=== PATIENT | female | born 1990 | race Caucasian/White ===

== ENCOUNTER 2019-11-30 17:44 | Inpatient (IN) ==
[2019-11-30 18:14] LABS: URINE SOURCE CLEAN CATCH
[2019-11-30 18:25] LABS: BILIRUBIN URINE NEGATIVE (NEGATIVE); BLOOD URINE SMALL (NEGATIVE); COLOR YELLOW; GLUCOSE URINE NEGATIVE (NEGATIVE); KETONE URINE NEGATIVE (NEGATIVE); LEUKOCYTES URINE LARGE (NEGATIVE); NITRITE URINE NEGATIVE (NEGATIVE); PH URINE 6.5; PROTEIN URINE 50 mg/dL (NEGATIVE); TURBIDITY URINE HAZY (CLEAR); UROBILINOGEN URINE NORMAL (NORMAL)
[2019-11-30 18:33] LABS: UR EPITHELIAL CELLS <10 /HPF (<10); URINE BACTERIA 2+ /HPF; URINE RBC <10 /HPF (<10); URINE WBC TNTC /HPF (<10)
[2019-11-30 18:46] LABS: URINE YEAST NONE SEEN
[2019-11-30] MEDS ORDERED: TYLENOL PO PRN (18:58)
[2019-11-30] MEDS ORDERED: MORPHINE IV ONE (18:59)
[2019-11-30] MEDS ORDERED: ZOFRAN IV ONE (18:59)
[2019-11-30] MEDS ORDERED: ROCEPHIN 1 GM in NS 50 ML IV SCH (19:00)
[2019-11-30] MEDS ORDERED: TORADOL IV ONE (19:01)
--- NOTE | 2019-11-30 19:13 | PROVIDER DOCUMENTATION ---
HPI-General Adult - General Chief Complaint: Abdominal Pain Stated Complaint: HURTING ON BOTH SIDE,FEVER Time Seen by Provider: 11/30/19 18:52 Source: patient Allergies/Adverse Reactions: Patient Allergies Allergy/AdvReac Type Severity Reaction Status Date / Time No Known Allergies Allergy Verified 07/09/19 07:56 - History of Present Illness -Gen Adult Nature of Presenting Problems: Patient comes in after having 2-3 days of lower abd and back pain with dysuria. She is tearful on exam. she also complains of fever and chills. Review of Systems - Adult - REVIEW OF SYSTEMS - ADULT Constitutional: reports: see HPI, chills, fever. denies: fatique, night sweats, weight gain, weight loss Eyes: reports: no symptoms reported. denies: discharge, dry eyes, decreased vision, blurred vision, eye pain, redness Ears, Nose, Mouth & Throat: reports: no symptoms reported. denies: ear discha rge, ear pain, tinnitus, epistaxis, nose pain, mouth/dental pain, hoarseness, throat pain Cardiovascular: reports: no symptoms reported. denies: chest pain, edema, heart murmur, irregular heart rate, palpitations, poor circulation, PND, syncope Respiratory: reports: no symptoms reported. denies: chronic cough, cough, dyspnea on exertion, excessive sputum production, hemoptysis, shortness of breath, wheezing Gastrointestinal: reports: see HPI, abdominal pain, nausea. denies: hematemesis, constipation, diarrhea, frequent heartburn, poor appetite, rectal bleeding, vomiting Genitourinary: reports: see HPI, dysuria, frequent UTI's. denies: discharge, frequency, flank pain, hematuria, hesitency, incontinence, urinary retention, urgency Musculoskeletal: reports: no symptoms reported, back pain. denies: bone pain, frequent leg cramps, joint pain, joint swelling, muscle aches, muscle weakness, neck pain Integumentary: reports: no symptoms reported. denies: hives, hair loss, itching, mole changes, rash, skin sores/ulcer, skin thickening Neurological: reports: no symptoms reported. denies: ataxia, headache/migraines, loss of balance, paresthesia, seizure, slurred speech, syncope, tremors Psychiatric: reports: no symptoms reported. denies: anxiety, anti-depressant use, alcohol/drug dependence, depression, emotional problems, insomnia, panic attacks, suicidal thoughts Endocrine: reports: no symptoms reported. denies: change in skin pigment, excessive sweating, goiter, cold intolerance, increased hunger, increased thirst, polyuria Hematologic/Lymphatic: reports: no symptoms reported. denies: blood clots, easy bruising, low blood count, lymphedema, swollen lymph nodes, transfusions Allergic/Immunologic: reports: no symptoms reported. denies: allergic reactions, allergic rhinitis, asthma, eczema, frequent infections, hives, positive PPD, urticaria All Other Systems: Reviewed and Negative Past History - Adult - PAST MEDICAL HISTORY-ADULT Review of Records: reports: Old Records Reviewed, Nursing Assessment Review, Medications Reviewed, Social history reviewed & non-contributory. Major Childhood Illnesses: reports: denies history Cardiovascular: reports: denies history Respiratory: reports: asthma Gastrointestinal: reports: denies history Obstetrical/Gynecological: reports: denies history Genitourinary: reports: other (frequent UTIs and pyelonephritis. ) Musculoskeletal: reports: denies history Neurological: reports: denies history Endocrine/Immune: reports: denies history Other Conditions: reports: denies history - PRIOR SURGERIES/PROCEDURES Surgical/Procedure History: reports: BTL, , tonsillectomy - PRIOR HOSPITALIZATIONS Prior Hospitalizations: reports: for similar symptoms - IMMUNIZATION STATUS Childhood Immunizations: See Nurse Assessment Flu Vaccine: See Nurse Assessment - FAMILY HISTORY Family History: reviewed, not pertinent - SOCIAL HISTORY Smoking: denies Substance Use: none/never Living Situation: family Physical Exam-General - PHYSICAL EXAM-ADULT Initial Vital Signs Reviewed: Yes - CONSTITUTIONAL General Appearance: alert, moderate distress - EYES Eyes: PERRL/EOMI, pink conjunctivae - HEAD, EARS, NOSE, MOUTH & THROAT HENMT: normocephalic/atraumatic, moist mucous membranes, normal ENT inspection - NECK Neck: non-tender, full range of motion, supple - RESPIRATORY Respiratory: chest non-tender, lungs clear, normal breath sounds, no pleuratic chest pain - CARDIOVASCULAR Cardiovascular: normal peripheral pulses, regular rate, rhythm, no edema - GASTROINTESTINAL (ABDOMEN) Abdominal Exam: normal bowel sounds, soft, tenderness - LYMPHATIC Lymphatic: no adenopathy - MUSCULOSKELETAL Back Exam: CVA tenderness Extremity: normal range of motion, non-tender, normal gait - SKIN Integumentary: normal color, normal turgor, warm/dry - NEUROLOGIC 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-XII nml as tested, grossly normal - PSYCHIATRIC Psych/Mental Status: normal mood/affect, normal thought content, normal thought process, oriented x 3 Progress - PLAN OF CARE/RESULTS Progress/Plan/Lab Results: Vital Signs - 8 hr 11/30/19 18:00 Temperature 99.2 F Pulse Rate 99 H Respiratory Rate 20 Blood Pressure 120/77 O2 Sat by Pulse Oximetry 99 Bedside Urine ED: Urine Bedside Start: 11/30/19 18:06 Freq: ORDERED Status: Active Protocol: Activity Type Activity Date Activity User E-Sign Co-Sign Detail Recorded Client Recorded Date Recorded By Document 11/30/19 18:08 [id number] 11/30/19 18:08 [id number] 11/30/19 18:08 Point of Care [Bedside Point of Care] -Lot # [id number] - Results Negative -Control Line Visible? Yes Laboratory Results - last 24 hr 11/30/19 18:05 Urine Source CLEAN CATCH Urine Color YELLOW Urine Turbidity HAZY Urine pH 6.5 Ur Specific [place] 1.010 Urine Protein 50 A Ur Glucose (Stick) NEGATIVE Ur Ketones (Stick) NEGATIVE Urine Blood SMALL A Urine Nitrite NEGATIVE Urine Bilirubin NEGATIVE Urobilinogen Dipstick NORMAL Urine Leukocytes LARGE A Urine WBC (Auto) TNTC A Urine RBC (Auto) <10 U Epithel Cells (Auto) <10 Urine Bacteria (Auto) 2+ Urine Crystals Not Reportable Small Round Cells Not Reportable Urine Casts Not Reportable Urine Yeast-like Cells NONE SEEN Orders Category Date Time Status Urine Preg [ED: Urine Bedside] ORDERED Care 11/30/19 18:06 Active CBC WITH DIFF [HEME] Stat Lab 11/30/19 18:57 Uncollected CMP [COMPREHENSIVE METABOLIC PANEL] [CHEM] Stat Lab 11/30/19 18:58 Uncollected UA NIMS W/REFLEX CULT [URINALYSIS] Stat Lab 11/30/19 18:05 Completed URINE CULTURE [RM] Routine Lab 11/30/19 18:05 Received URINE MANUAL MICROSCOPIC [URINALYSIS] Stat Lab 11/30/19 18:05 Completed Acetaminophen [Tylenol] Med 11/30/19 18:58 Active 650 mg PO Q6H PRN PRN CefTRIAXONE [Rocephin] 1 gm Med 11/30/19 19:00 Active 0.9% Sodium Chloride Inj [Ns] 50 ml IV Q24H Ketorolac [Toradol] Med 11/30/19 19:01 Discontinued 15 mg IV NOW ONE Morphine Med 11/30/19 18:59 Discontinued 2 mg IV NOW ONE Ondansetron [Zofran] Med 11/30/19 18:59 Discontinued 4 mg IV NOW ONE Result Diagrams: 11/30/19 19:21 - CONSULTS/PCP/HOSPITALIST Notification #1 *Consult/PCP/Hospitalist*: dr nelson Time Discussed: 19:59 Consult Disposition: Will see in ED, Admit Departure - Departure Date of Disposition Decision: 11/30/19 Time of Disposition Decision: 19:14 DIAGNOSIS: Pyelonephritis Disposition: ADMITTED INPATIENT 09 Certified Medical Emergency: Emergent Condition: Good Referrals and Follow-Ups: None,PCP [NON-STAFF PROVIDER] - - Critical Care Note This patient required my direct & personal management of CC.: No Attestation - Physician/ NEFTALI Attestation Patient care was provided by Advanced Practice Provider:: Yes Advanced Practice Provider:: Olga Mcleod Advanced Practice Provider documentation review:: The Mid-level provider documentation, treatment plan and medical decision making was reviewed by the physician who agrees with all treatment and medical decision making by the P. The physician spent face to face time with patient:: No Advanced Practice Provider documentation review:: Supervising physician onsite and consulted in the evaluation and care of this patient. The physician did not have a face to face encounter with the patient.
[2019-11-30 20:03] LABS: BASO# 0.02 X1000 (0.0-0.2); BASO% 0.2 % (0.0-0.8); EOS# 0.05 X1000 (0.0-0.7); EOS% 0.6 % (0.0-10.0); HEMATOCRIT 36.6 % (37.0-47.0); HEMOGLOBIN 11.8 g/dL (12.0-16.0); IMM GRAN# 0.03 X1000 (0.0-0.04); IMM GRAN% 0.3 % (0.0-0.5); LYMPH# 0.55 X1000 (1.2-3.4); LYMPH% 6.2 % (20.5-51.1); MCH 32.5 PG (27-31); MCHC 32.2 g/dL (33-37); MCV 100.8 FL (81-99); MONO# 0.12 X1000 (0.11-0.59); MONO% 1.4 % (1.7-9.3); MPV 10.7 FL (7.4-10.4); NEUT# 8.06 X1000 (1.4-6.5); NEUT% 91.3 % (42.2-75.2); PLT 164 X1000 (130-400); RBC 3.63 XMIL (4.2-5.4); RDW 13.2 % (11.5-14.5); WBC 8.83 X1000 (4.8-10.8)
[2019-11-30 20:06] LABS: AGAP 13; ALB/GLOB RATIO 1.9; ALKALINE PHOSPHATASE 78 U/L (32-104); BUN 10 mg/dL (8-22); CALCIUM 8.9 mg/dL (8.8-10.2); CHLORIDE 102 mmol/L (98-107); COSMO 277; CREATININE 0.7 mg/dL (0.5-0.9); ESTIMATED GFR > 60; GLUCOSE 104 mg/dL (70-104); GOT 14 U/L (10-30); GPT 7 U/L (10-36); POTASSIUM 3.5 mmol/L (3.5-5.1); SODIUM 139 mmol/L (136-145); TCO2 24 mmol/L (25-35); TOTAL BILIRUBIN 0.85 mg/dL (0.20-1.00); TOTAL PROTEIN 6.1 g/dL (6.3-8.3)
[2019-11-30] MEDS: NORCO-7.5 PO PRN (23:08)
[2019-11-30] MEDS: LEVAQUIN 500 MG/D5W 500 MG/100 ML IVPB IV SCH (23:09)
[2019-11-30] MEDS: NS 1,000 ML IV SCH (23:09)
--- NOTE | 2019-12-01 01:00 | HISTORY AND PHYSICAL ---
PRIMARY CARE PROVIDER: Madeline Sanchez. CHIEF COMPLAINT: Bladder, back pain and dysuria. HISTORY OF PRESENT ILLNESS: Ms. Dias is a 29-year-old female with a past medical history of frequent UTIs and pyelonephritis in the past and asthma. She came to the ED complaining of a 3-day history of bladder and bilateral flank pain with associated fevers, chills and dysuria. She has been taken Azo with no relief. She came to the ED to be evaluated. Workup revealed pyelonephritis. She was initiated on Rocephin. Previous cultures grew out Escherichia coli susceptible to levofloxacin. We will add that as well. Continue with aggressive IV hydration overnight. Pain management. PAST MEDICAL HISTORY: Frequent UTIs, pyelonephritis, asthma. PAST SURGICAL HISTORY: Two sections and tubal. FAMILY HISTORY: Notable for asthma and chronic kidney disease. SOCIAL HISTORY: Jnle-dqni-xbp-day smoker. No alcohol or illicit drug use. Significant other is at bedside. REVIEW OF SYSTEMS: Completed and negative except for those mentioned in HPI. There has been no nausea, vomiting, diarrhea, chest pain or shortness of breath. HOME MEDICATIONS: None. ALLERGIES: It says no known allergies, but previously we have documented acetaminophen and hydrocodone. PHYSICAL EXAMINATION: VITAL SIGNS: Temperature is 99.2 degrees, heart rate 99, respirations 20, blood pressure 120/77, O2 is 99% on room air. GENERAL: Ms. Dias is a 29-year-old female who is lying on the stretcher asleep, awakens easily to voice, in no acute distress. HEENT: Atraumatic, normocephalic. PERRL. NECK: Supple. Trachea midline. CARDIOVASCULAR: S1, S2 appreciated. No murmurs, gallops or rubs noted. RESPIRATORY: Lung sounds clear bilaterally. ABDOMEN: Tender. It is flat, tender to palpation. BACK: She has CVA tenderness on bilateral flank areas. EXTREMITIES: No evidence of clubbing or cyanosis. Pedal pulses are bounding. SKIN: Warm, dry and intact. NEUROLOGIC: No focal deficits noted. DIAGNOSTIC DATA: None. LABORATORY DATA: White count 8, hemoglobin and hematocrit 11 and 36, platelet count is 164,000. Sodium 139, potassium 3.5, BUN 10, creatinine 0.7, blood glucose is 104. Urinalysis: Bacteria 2+ , less than 10 RBCs, mdp-efodbbbj-ai-count WBCs, large leukocytes, nitrite negative, small blood. ASSESSMENT AND PLAN: 1. Pyelonephritis. The patient was initially given a dose of intravenous Rocephin. Given her previous cultures most susceptible to Levaquin, we will add Levaquin as well. Aggressive intravenous hydration, pain regimen. 2. Asthma without exacerbation. 3. Further recommendation to follow physician evaluation, laboratory and diagnostic data. Dictated by ALBERTINA Salazar for Atif Ledesma MD I have performed a face to face diagnostic evaluation. Labs/xrays- reviewed. Exam- Chest- clear, CV- regular, Back- flank tenderness. A/P- Acute Pyelonephritis-Admit, IV fluids, IV ABx, Pain control. Dr. Ledesma cc: MD Madeline Hernandez
[2019-12-01] MEDS: NORCO-7.5 PO PRN ×2 (05:33→08:41)
[2019-12-01] MEDS: NS 1,000 ML IV SCH ×3 (07:55→19:35)
[2019-12-01 07:56] LABS: BASO# 0.02 X1000 (0.0-0.2); BASO% 0.2 % (0.0-0.8); EOS# 0.25 X1000 (0.0-0.7); EOS% 2.3 % (0.0-10.0); HEMATOCRIT 35.8 % (37.0-47.0); HEMOGLOBIN 11.2 g/dL (12.0-16.0); IMM GRAN# 0.02 X1000 (0.0-0.04); IMM GRAN% 0.2 % (0.0-0.5); LYMPH# 1.77 X1000 (1.2-3.4); LYMPH% 16.4 % (20.5-51.1); MCH 32.3 PG (27-31); MCHC 31.3 g/dL (33-37); MCV 103.2 FL (81-99); MONO# 0.99 X1000 (0.11-0.59); MONO% 9.2 % (1.7-9.3); MPV 11.1 FL (7.4-10.4); NEUT# 7.71 X1000 (1.4-6.5); NEUT% 71.7 % (42.2-75.2); PLT 188 X1000 (130-400); RBC 3.47 XMIL (4.2-5.4); RDW 13.4 % (11.5-14.5); WBC 10.76 X1000 (4.8-10.8)
[2019-12-01 08:13] LABS: AGAP 10; ALB/GLOB RATIO 1.8; ALBUMIN 3.4 g/dL (3.5-5.0); ALKALINE PHOSPHATASE 72 U/L (32-104); BUN 12 mg/dL (8-22); CALCIUM 8.2 mg/dL (8.8-10.2); CHLORIDE 103 mmol/L (98-107); COSMO 278; CREATININE 0.8 mg/dL (0.5-0.9); ESTIMATED GFR > 60; GLUCOSE 107 mg/dL (70-104); GOT 12 U/L (10-30); GPT 7 U/L (10-36); POTASSIUM 3.7 mmol/L (3.5-5.1); SODIUM 139 mmol/L (136-145); TCO2 26 mmol/L (25-35); TOTAL BILIRUBIN 0.49 mg/dL (0.20-1.00); TOTAL PROTEIN 5.3 g/dL (6.3-8.3)
[2019-12-01] MEDS: ROCEPHIN 2 GM in NS 50 ML IV SCH (10:51)
[2019-12-01] MEDS ORDERED: MORPHINE IV ONE (11:00)
--- NOTE | 2019-12-01 11:33 | Diag Imaging Result Doc PS360 ---
EXAM: CT ABDOMEN/PELVIS W/O CONTRAST INDICATION: Pyelonephritis, bacteremia, R/O renal obstruction TECHNIQUE: This exam was performed using automated exposure control, adjustment of mA or kV according to patient size, and/or use of iterative reconstruction technique. COMPARISON: 11/03/2016 FINDINGS: There is minimal subsegmental atelectasis at both lung bases. The gallbladder, liver, spleen, pancreas, and adrenal glands are grossly unremarkable. There is right perinephric and right periureteral inflammatory stranding consistent with the given history of pyelonephritis. There is no significant hydronephrosis. No renal or ureteral stones are identified. The left kidney is unremarkable. The urinary bladder is largely nondistended and there is a thickened urinary bladder wall, likely a combination of underdistention and probably cystitis. There is trace free fluid layering in the pelvis. There is a 2.5 cm left ovarian cyst. The appendix is normal. There is no evidence of focal bowel wall thickening or bowel obstruction. The remainder of the GI tract is essentially unremarkable. IMPRESSION: Right perinephric and periureteral inflammatory stranding consistent with the given history of pyelonephritis. However, there is no hydronephrosis to indicate obstruction. Electronically signed by Aaron Leija 12/01/2019 11:31 AM
--- NOTE | 2019-12-01 11:56 | PROGRESS NOTE ---
DATE: 12/01/2019 SUBJECTIVE: The patient is still complaining of abdominal pain and bilateral flank pain. She has CVA tenderness bilaterally, I do believe more in the left side. I will continue with same management. I have increased the dose of the ceftriaxone to 2 gm because I have a positive blood culture that showed gram-negative rods, so likely this patient is bacteremic. I have requested a CT scan of the abdomen and pelvis and pending results. She has been having urine infections before, I think back in 2015 or 2014, I will monitor for now and I will continue with same management, IV fluids. OBJECTIVE: Vital Signs: Temperature 97.6 degrees, pulse 65, respiratory rate 17, blood pressure 92/51, oxygen saturation 96 on room air. HEENT: Head normocephalic, no trauma. PERRLA. Neck: Supple. No JVD. No masses. Central trachea. Chest: Clear to auscultation. No wheezing. No rales. Abdomen: Soft, tenderness to palpation at the level of the flanks mostly and lower abdomen, CVA tenderness bilaterally mostly on the left side. Extremities: No edema, no clubbing, no cyanosis. Neurological: The patient is awake, alert, she is oriented x3. No focal deficits. LABORATORY: WBC 10.7, hemoglobin 11.2, hematocrit 35.8, platelets 188,000, sodium 139, potassium 3.7, chloride 103, bicarbonate 26, BUN 12, creatinine 0.8, glucose 107, calcium 8.2, AST 12, ALT 7, alkaline phosphatase 72, albumin 3.4. ASSESSMENT AND PLAN: 1. Pyelonephritis, probably bilaterally per my physical exam. As per the patient she has been having burning sensation to urinate for the past 4 to 5 days. She has been taking AZO without any kind of relief. I will continue with antibiotics. I have requested a CT of the abdomen and pelvis to rule out obstruction. 2. Bacteremia. She does have a positive blood culture 2/2 that showed gram-negative rods. I have increased the dose of the ceftriaxone to 2 gm and will monitor. She is also on levofloxacin. 3. Asthma without exacerbation. 4. Microcytic anemia. I will ask for the anemia workup for tomorrow. 5. Sepsis due to urinary tract infection. Aware, as per #1. cc: Jeremi Stallings MD
[2019-12-01] MEDS: NORCO-10 PO PRN ×2 (14:05→20:40)
[2019-12-01] MEDS: LEVAQUIN 500 MG/D5W 500 MG/100 ML IVPB IV SCH (20:42)
[2019-12-02] MEDS: LEVAQUIN 500 MG/D5W 500 MG/100 ML IVPB IV SCH ×3 (00:43→23:25)
[2019-12-02] MEDS: NORCO-10 PO PRN ×4 (02:39→21:09)
[2019-12-02] MEDS: NS 1,000 ML IV SCH ×4 (02:56→21:44)
[2019-12-02 06:35] LABS: BASO# 0.01 X1000 (0.0-0.2); BASO% 0.1 % (0.0-0.8); EOS# 0.19 X1000 (0.0-0.7); EOS% 2.4 % (0.0-10.0); HEMOGLOBIN 11.5 g/dL (12.0-16.0); IMM GRAN# 0.02 X1000 (0.0-0.04); IMM GRAN% 0.2 % (0.0-0.5); LYMPH# 1.27 X1000 (1.2-3.4); LYMPH% 15.7 % (20.5-51.1); MCH 32.3 PG (27-31); MCHC 31.1 g/dL (33-37); MCV 103.9 FL (81-99); MONO# 0.89 X1000 (0.11-0.59); MPV 10.8 FL (7.4-10.4); NEUT# 5.69 X1000 (1.4-6.5); NEUT% 70.6 % (42.2-75.2); PLT 192 X1000 (130-400); RBC 3.56 XMIL (4.2-5.4); RDW 13.2 % (11.5-14.5); WBC 8.07 X1000 (4.8-10.8)
[2019-12-02 06:46] LABS: IRON SATURATION 9 %; TIBC 212 ug/dL; TOTAL IRON 20 ug/dL (49-151); UNBOUND IRON 192 ug/dL (112-346)
[2019-12-02 06:52] LABS: AGAP 4; BUN 6 mg/dL (8-22); CHLORIDE 109 mmol/L (98-107); COSMO 277; CREATININE 0.5 mg/dL (0.5-0.9); ESTIMATED GFR > 60; GLUCOSE 101 mg/dL (70-104); POTASSIUM 4.2 mmol/L (3.5-5.1); SODIUM 140 mmol/L (136-145); TCO2 27 mmol/L (25-35)
[2019-12-02 07:10] LABS: FERRITIN 84 ng/mL (13-150)
[2019-12-02] MEDS: ROCEPHIN 2 GM in NS 50 ML IV SCH (08:49)
[2019-12-02] MEDS: VITAMIN B-12 SL SCH (12:10)
--- NOTE | 2019-12-02 14:47 | PROGRESS NOTE ---
DATE: 12/02/2019 SUBJECTIVE: The patient seems to be feeling just a little bit better compared with yesterday. She is still complaining of abdominal pain and bilateral flank pain. She still has CVA tenderness. We have a positive urine culture that showed E coli which is sensitive to levofloxacin as well as cephalosporins, I will continue for now with the same management and hopefully tomorrow once I have the sensitivity of the blood culture I will continue with a single agent. OBJECTIVE: Vital signs: Temperature 98.3 degrees, pulse 61, respiratory rate 17, blood pressure 111/55, oxygen saturation 100% on room air. HEENT: Head normocephalic, no trauma. PERRLA. Neck: Supple. No JVD, no masses. Central trachea. Chest: Clear to auscultation. No wheezing, no rales. Abdomen: Soft. Generalized tenderness to palpation mostly at the level of the flanks and lower abdominal area, CVA tenderness. Neurologic: The patient is awake, alert, she is oriented x3. No focal deficit. LABORATORY: WBC 8, hemoglobin 11.5, hematocrit 37, platelets 192,000. Sodium 140, potassium 4.2, chloride 109, bicarbonate 27, BUN 6, creatinine 0.5, glucose 101, calcium 8, iron is 20, total iron binding capacity is 212, vitamin B12 150, folic acid level 2.2. ASSESSMENT AND PLAN: 1. Pyelonephritis, probably bilaterally but mostly on the right side, I will continue with antibiotics. Urine culture showed Escherichia coli, will continue with same management and IV fluids. 2. Bacteremia due to gram-negative rods 2/2. I will wait for the final results to be able to continue with a single agent. 3. Asthma without exacerbation. 4. Macrocytic anemia due to folic acid and B12 deficiency. She will need to follow up as an outpatient with her primary care doctor to rule out pernicious anemia. 5. Sepsis due to urinary tract infection. Continue with antibiotics per #1. cc: Jeremi Stallings MD
[2019-12-02] MEDS: ZOFRAN IV PRN ×2 (14:57→21:11)
[2019-12-02] MEDS: FOLIC ACID PO SCH (21:09)
[2019-12-03] MEDS: NORCO-10 PO PRN ×4 (03:29→22:02)
[2019-12-03] MEDS: NS 1,000 ML IV SCH ×2 (03:30→12:15)
[2019-12-03] MEDS: ZOFRAN IV PRN ×3 (03:30→16:38)
[2019-12-03] MEDS: FOLIC ACID PO SCH ×3 (10:20→22:40)
[2019-12-03] MEDS: VITAMIN B-12 SL SCH (10:20)
[2019-12-03] MEDS: ROCEPHIN 2 GM in NS 50 ML IV SCH (10:21)
[2019-12-03] MEDS ORDERED: MIRALAX PO SCH (12:30)
[2019-12-03] MEDS: LEVAQUIN 750 MG/D5W 750 MG/150 ML IVPB IV SCH (14:41)
--- NOTE | 2019-12-03 14:51 | PROGRESS NOTE ---
DATE: 12/03/2019 SUBJECTIVE: The patient is still complaining of abdominal pain which is generalized but mostly at the level of the flanks. Her abdomen is soft. She does have bowel sounds but she is severely constipated. I gave her a dose of MiraLAX but I will start this patient on lactulose. I checked her CT scan and she has a lot of stool but there is no obstruction. As per the patient, she has a bowel movement every two weeks or so. OBJECTIVE: Vital Signs: Temperature 98.1 degrees, pulse 61, respiratory rate 18, blood pressure 130/90, oxygen saturation 98 on room air. HEENT: Head normocephalic. No trauma. PERRLA. Neck: Supple. No JVD. No masses. Central trachea. Chest: Clear to auscultation. No wheezing. No rales. Abdomen: Soft. Generalized tenderness to palpation, mostly at the level of the flanks and lower abdominal area. CVA tenderness. Neurological Examination: Awake and alert. She is oriented x3. No focal deficits. Laboratory: No lab work done today. ASSESSMENT AND PLAN: 1. Pyelonephritis bilaterally, mostly on the right side. Continue with antibiotics. Urine culture showed Escherichia coli that is sensitive to ceftriaxone and levofloxacin. I will stop the ceftriaxone. I will continue with levofloxacin. 2. Bacteremia due to Escherichia coli. Also, this is sensitive to levofloxacin, which I will continue as a single agent. 3. Severe constipation. I have started this patient on lactulose. She received a dose of MiraLAX. As per the patient, she has a bowel movement probably every two weeks. 4. Sepsis due to urinary tract infection. Continue with antibiotics per #1. 5. Folic acid deficiency and vitamin B12 deficiency. I will replace both. cc: Jeremi Stallings MD
[2019-12-03] MEDS: LACTULOSE PO SCH ×2 (19:57→22:40)
[2019-12-04] MEDS: NS 1,000 ML IV SCH ×2 (03:01→14:12)
[2019-12-04] MEDS: NORCO-10 PO PRN ×3 (06:09→18:03)
[2019-12-04 07:28] LABS: AGAP 8; BUN 7 mg/dL (8-22); CALCIUM 8.1 mg/dL (8.8-10.2); CHLORIDE 110 mmol/L (98-107); COSMO 285; CREATININE 0.6 mg/dL (0.5-0.9); ESTIMATED GFR > 60; GLUCOSE 93 mg/dL (70-104); SODIUM 144 mmol/L (136-145); TCO2 26 mmol/L (25-35)
[2019-12-04] MEDS: VITAMIN B-12 SL SCH (08:13)
[2019-12-04] MEDS: LACTULOSE PO SCH ×2 (08:13→20:31)
[2019-12-04] MEDS: FOLIC ACID PO SCH ×2 (08:13→20:31)
[2019-12-04] MEDS: ZOFRAN IV PRN ×2 (12:04→18:03)
--- NOTE | 2019-12-04 13:23 | PROGRESS NOTE ---
DATE: 12/04/2019 SUBJECTIVE: The patient is still complaining of abdominal pain. Seems to be a little bit better though. I will ask for an abdominal ultrasound. Her blood culture has been negative, so hopefully tomorrow if the ultrasound is okay and the blood culture is still negative, she will go home. She had a bowel movement, apparently a good one. I will continue with the lactulose. OBJECTIVE: Vital Signs: Temperature 97.7 degrees, pulse 60, respiratory rate 16, blood pressure 110/66, oxygen saturation 100% on room air. HEENT: Head normocephalic. No trauma. PERRLA. Neck: Supple. No JVD. No masses. Central trachea. Chest: Clear to auscultation. No wheezing. No rales. Abdomen: Soft. Generalized tenderness to palpation, mostly at the level of the flanks and lower abdomen. Some CVA tenderness, mostly on the right side. Neurological: Awake, alert. She is oriented x3. No focal deficits. LABORATORY DATA: Sodium 140, potassium 4, chloride 110, bicarbonate 26, BUN 7, creatinine 0.6, glucose 93, calcium 8.1. ASSESSMENT AND PLAN: 1. Pyelonephritis, bilaterally, mostly on the right side. Continue with antibiotics. Urine culture showed Escherichia coli that is sensitive to levofloxacin. 2. Bacteremia due to Escherichia coli. Also sensitive to levofloxacin, which I will continue as a single agent. 3. Severe constipation. She had already a bowel movement. I will continue with lactulose. 4. Sepsis due to urinary tract infection. Continue with antibiotics per #1. 5. Folic acid deficiency and B12 deficiency. I am replacing both. cc: Jeremi Stallings MD
[2019-12-04] MEDS: LEVAQUIN 750 MG/D5W 750 MG/150 ML IVPB IV SCH (14:12)
--- NOTE | 2019-12-04 14:30 | Diag Imaging Result Doc PS360 ---
EXAM: US ABDOMEN-COMPLETE INDICATION: Abdominal pain COMPARISON: None. FINDINGS: The gallbladder appears normal with no stones, wall thickening, or pericholecystic fluid. The common bile duct is normal in diameter. Sonographic Saldivar's sign was reported to be negative. The liver is grossly unremarkable. Portal venous flow is hepatopetal. The visualized pancreas is unremarkable. The aorta and IVC are grossly unremarkable. The spleen is unremarkable. The kidneys are grossly unremarkable. IMPRESSION: Essentially unremarkable abdominal ultrasound. Electronically signed by Aaron Leija 12/04/2019 2:27 PM
[2019-12-05] MEDS: NORCO-10 PO PRN ×2 (00:14→06:09)
[2019-12-05] MEDS: NS 1,000 ML IV SCH (06:09)
[2019-12-05 08:59] VITALS: BP 112/60
[2019-12-05] MEDS: FOLIC ACID PO SCH (10:07)
[2019-12-05] MEDS: VITAMIN B-12 SL SCH (10:07)
[2019-12-05] MEDS: LACTULOSE PO SCH (10:07)
--- NOTE | 2019-12-06 13:38 | DISCHARGE SUMMARY ---
ADMISSION DATE: 11/30/2019 DISCHARGE DATE: 12/05/2019 DIAGNOSES: 1. Pyelonephritis, resolved. 2. Asthma without exacerbation. 3. Bacteremia due to Escherichia coli. 4. Severe constipation, resolved. DIAGNOSTICS: 1. CT of the abdomen and pelvis without contrast revealed right perinephric and periureteral in full supplemented inflammatory stranding consistent with a given history of pyelonephritis. There is no hydronephrosis to indicate obstruction. 2. Abdominal ultrasound: Essentially unremarkable abdominal ultrasound. 3. Microbiology: Urine culture revealed E coli 11/30/2019. 4. Blood cultures revealed E coli on 11/30/2019. 5. Repeat blood cultures 12/03/2019 revealed no growth after 48 hours. HOSPITAL COURSE: Ms. Dias presented to the emergency room complaining of back pain and dysuria. She was ultimately found to have pyelonephritis with Escherichia coli bacteremia and Escherichia coli UTI for which she was treated with Rocephin initially and then she was converted to Levaquin. She was found to be severely constipated. After bowel regimen she has had 3 bowel movements. She states she feels much better. She had folic acid and B12 were replaced. DISCHARGE VITAL SIGNS: Blood pressure is 112/60 with heart rate of 78, respirations 18, temperature is 98.3 degrees oral with room air 98%. DISCHARGE PHYSICAL EXAMINATION: Cardiovascular: Regular rate and rhythm. S1 and S2 appreciated. Pulmonary: Pulmonary breath sounds clear no increased work of breathing noted. Chest rise falls symmetric with respiration. Gastrointestinal: Abdomen soft, nontender, nondistended. Bowel sounds in all 4 quadrants. Neurologic: She is alert oriented x3. DISCHARGE MEDICATIONS: 1. Folic acid 1 tablet p.o. daily. 2. Lactulose 30 mL p.o. b.i.d. p.r.n. constipation. 3. Levaquin 750 p.o. daily 4. [place] 5 1 q. 6 hours p.r.n. pain. 5. Tylenol 650 q. 6 hours p.r.n. 6. Vitamin B12 2500 mcg sublingual daily. FOLLOWUP: Dr. Madeline Sanchez 12/10/2019 at 9:45 a.m. DISCHARGE INSTRUCTIONS: She was instructed to call to be seen sooner or return to the ER for any syncope, dizziness, chest pain, palpitations, any nausea, vomiting, diarrhea, constipation, black or bloody vomitus or stools any hematuria dysuria frequency or urgency. She is being discharged home in stable condition with family members. TIME SPENT: This is a greater than 30 minute discharge. Dictated by ALBERTINA Rivera for Jeremi Stallings MD cc: ALBERTINA Rivera MD
== END 2019-12-05 11:26 | disposition home or self-care (01) | DRG 690 ==
LOC: ED 17:44 → SUATTDRO 17:45 → 4N 20:56
PROVIDERS: ATTEND Internal Medicine